=== PATIENT | female | born 2000 | race Caucasian/White ===

== ENCOUNTER 2023-10-25 14:04 | Emergency (ER) | payer MEDICAID, SELFPAY ==
[2023-10-25 14:10] VITALS: BP 144/91; PULSE 85; RESP 20; TEMP 37.2; O2SAT 97; BMI 23.0
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
[2023-10-25] MEDS: Baclofen 20 MG TABLET PO (14:29)
[2023-10-25] MEDS: Gabapentin 600 MG TABLET PO (14:29)
[2023-10-25 16:28] VITALS: BP 113/55; PULSE 70; RESP 16; TEMP 36.5; O2SAT 95
--- NOTE | 2023-10-25 17:15 | PHA.MEDREC ---
Pharmacy Consult ? Medication Reconciliation Pharmacy has reviewed the medication reconciliation completed by Bri. Padmini Tiwari, LucianoD
--- NOTE | 2023-10-25 17:25 | PC.NURSE ---
pt refusing to answer SI question in triage. pt placed with 1:1 sitter for past SI attempt. pt with visual, auditory, and tactile hallucinations. claims the user acceptance tester is her ex-girlfriend. pt is wheelchair bound. t/w had plans to straight cath pt for utox for care team. care team met with pt before utox obtained and stated pt doesn't need one. pt mom called to check in on pt. left nuber and would like to be updated. Emilie: [phone]
--- NOTE | 2023-10-25 20:41 | MHC.CARE ---
Care team evaluation complete. Pt will be discharged home and her mother will pick her up. pt will continue with [facility] in the morning. Safety plan created and discussed with Pt; Pt verbalized understanding. Pt's mother made aware of safety plan as well. RN, ED provider and Pt are aware of disposition.
== END 2023-10-25 19:21 | disposition home or self-care (01) ==
PROVIDERS: Emergency Provider Emergency Medicine; PCP Internal Medicine
DX: F31.60 Bipolar disorder, current episode mixed, unspecified (principal); F29 Unspecified psychosis not due to a substance or known physiological condition; G82.20 Paraplegia, unspecified; Z87.820 Personal history of traumatic brain injury; Z99.3 Dependence on wheelchair
CPT/HCPCS: 99284; 99285; S9485

== ENCOUNTER 2023-10-27 10:45 | Outpatient (RCR) | payer MEDICAID, OTHER, SELFPAY ==
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
[2023-10-23 12:14] VITALS: BMI 25.4
[2023-10-23 12:48] VITALS: BP 123/88; PULSE 81; TEMP 37.2
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
--- NOTE | 2023-10-25 14:47 | HO.PHP ---
PHP staff member received a tiger text from November stating that Mary is in group room A dysregulated and screaming. PHP staff member met with Mary, had tangential speech, presented with delusional thoughts, distraught, tearful, dysregulated and appeared easily agitated. Mary was expressing feeling as though she did not fit in, was talking about being transgender and not being able to talk about it. [facility] staff asked Mary if we could go back to my office so we aren't disrupting the group. Mary was receptive. PHP staff member, Maria Luisa, in which we assessed what triggered this situation. Mary was distraught stating she doesn't fit in anywhere and no one likes her. Mary shared how she went to [facility] and when she came back no one cares about her. [facility] staff Cee, expressed that it appears her mother is supportive. Mary said no it is here, she doesn't connect with the peers. Mary was difficult to follow in which she had delusions around going to [facility], [employer], some woman (didn't disclose who the woman was), voicing that she knows what she has to do, etc. Mary was growing increasing agitated and headed to the door. [facility] staff explored with Mary any safety concerns. Mary disclosed, I can't do anything, I'm in a wheelchair. Mary then exited the room. PHP staff member contacted the mother to inform her that Mary is having a challenging day. PHP staff encouraged the mother to further provide support around safety. Mary's mother was receptive and shared how Mary has been enjoying the program. PHP staff member suggested if the mother needs anything to let us know. Mary's mother was in agreement. PHP staff member Cee and Yennifer, met with Mary before she went home, when we went to get her from the group, she was dysregulated, crying, and screaming. PHP staff members pulled Mary to the side. Mary was making comments around knowing she will hurt her family when she gets home. PHP staff member suggested that we go to the ER to get evaluated. Mary was receptive. PHP staff member Cee, informed Elif, while PHP staff member, Yennifer, brought Mary down to the ER. PHP staff member went to the CARE team to update them when Mary was being seen in triage. PHP staff member spoke to Rena, through the CARE team and provided her with an update around behaviors observed later today in groups. Rena assessed if she presented in this manner when she started two days ago. PHP staff member voiced that she did not but it appeared the provider had noted some information on her presentation with her yesterday. PHP staff expressed that Mary had two TBI's and struggles cognitively. Rena was receptive and reviewed the integrated and Doctor note. [facility] staff member informed Mary's mother that Mary is being evaluated in the ER due to concerns around her presentation. Mary's mother shared that she is familiar with her psychosis and noted that it was worse when her med provider abruptly discontinued medication. Mary's mother talked about her dislike with the hospital setting and stated that in the past she has had to go to the hospital because they did not have anyone who could meet Mary's needs. [facility] staff disclosed that she is uncertain to the procedures within the ER and noted if they have additional questions they will reach out to her. Mary's mtoher was receptive.
--- NOTE | 2023-10-25 14:50 | PC.NURSE ---
[facility] staff escorted Mary down to the [facility] for a crisis evaluation. Per [facility] staff patient reportedly expressing SI and HI in group and presented as delusional. She reported to staff that she was experiencing suicidal thoughts, sobbing, distraught making statements of hurting a women, hurting family, and herself. Delusional statements about hell and her purpose. Staff reports she smelled of Marijuana. Patient has a history of 2 TBI's. In addition, Dr Shankar decreased patient's Celexa from 60 mg to 40 mg daily. Nurse to Nurse done including the aforementioned information.
--- NOTE | 2023-10-26 18:20 | HO.PHP ---
Client's case has been opened and reviewed in treatment team.
--- NOTE | 2023-10-26 22:14 | P.PNPSP_ITS ---
Subjective Subjective Date of Service: 10/26/23 Reason For Visit: JEFF,MDD,bipolar Interim History: Sent patient home early from program today. Having diffciulty with tolerating groups, has been disruptive responding to AH (believes mom is talking to her while in group). SHe tells me she sees her mother and sister and exGF in group. She is getting upset because she believes she is mindreading what the other patient in the groups are thinking and shares what she has been hearing. She is angry that they are thwarting her attempts at getting a girlfriend and says that this was her purpose for coming to the program. She is also frustrated that they act like they cant hear my thoughts back at them and remains hyperfixated on one of the other patients. She says she is Silvano and that she has been given the power to cure with Love and that the devil is men and in the room . She also talks about coming from the devil and continues to insist she needs to be here to process her and what I was shown when I was hooked up to the [employer] [facility] [employer] and believes she needs to be allowed to share this with people in the program because that is the purpose of being here. She agrees to having her mother join us and was agreeable to starting on medication because she hasn't been sleeping, and agrees to medication to help her brain which is constantly running at full capacity and admits it can be too much information to deal with. 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 Medication Compliance: Yes Side effects from medications: No Attending Groups: Yes Review of Systems Acute medical concerns: No Mental Status Exam Mental Status Exam Narrative: Alert, oriented, in no acute distress. In wheelchair Patient Behavior: Talkative, Restless and Impulsive Mood Description: Euphoric and Angry Affect Description: Labile and Expansive Patient Cognition Impaired: Yes Ability to Follow Directions: Good Speech Pattern: Spontaneous Speech, Rambling and Rapid Memory Description: Normal for Patient Hallucinations: Auditory and Visual Delusions: Grandiose, Thought Insert/Delete, Ideas of Reference and Bizarre Perceptual Disturbances: Hallucinations Thought Process: Incoherent and Illogical Thought Content: positive for Obsessional Thoughts, positive for Loose Associations and positive for Disorganized Judgement: Fair Diagnostics Vital Signs (24Hr): BMI result Body Mass Index 25.4 Assessment & Plan Assessment & Plan (1) Bipolar affective disorder, mixed, severe, with psychotic behavior: Status: Acute Code(s): F31.64 - Bipolar disorder, current episode mixed, severe, with psychotic features (2) Unspecified mental disorder due to known physiological condition: Status: Acute Code(s): F09 - Unspecified mental disorder due to known physiological condition (3) Cannabis use with cannabis-induced disorder: Status: Acute Code(s): F12.99 - Cannabis use, unspecified with unspecified cannabis-induced disorder Plan Patient is agreeable to leaving program early today and starting straight away on risperidone 0.5 mg BID start Depakote 250 mg ER qhs tonight Will call tonight to check and may repeat another 0.5 mg later (patient may be vulnerable to side effects due to TBI) taper off citalopram patient agrees to avoid any further cannabis use for time being. Denies any alcohol or other substance use mom refusing to bring pt for labs, she is still angry about ED visit yesterday Patient educated on: diagnosis, medication risk/benefits and substance abuse Reason for contiued partial hosp. stay Substantial Risk for: harm to self, inability to function, rapid decompensation and med/psych decompensation Certification I certify that partial hospital treatment is medically necessary due to the symptoms and problems resulting from the patient's mental illness and the carina lure to treat the patient at the partial hospital level of care would likely result in the patient requiring inpatient psychiatric care which could not be prevented at a less intensive level of care. Total time managing care of this patient today __30__ minutes. Discharge Plan Discharge Attending provider: Snehal Shankar Medications: New risperidone 0.5 mg tablet 0.5 mg PO BID Qty: 30 0RF gabapentin 800 mg tablet 800 mg PO TID Qty: 30 0RF divalproex [Depakote ER] 250 mg tablet extended release 24 hr 250 - 500 mg PO .QHS Qty: 20 0RF Rx Instructions: start one tablet po daily at bedtime for 4 nights, then increase to 2 tablets po daily at bedtime Continued sennosides [senna] 8.6 mg Tablet 8.6 - 17.2 mg PO BEDTIME Rx Instructions: Take 1-2 tabs at Bedtime. gabapentin 600 mg Tablet 600 mg PO TID tizanidine 4 mg tablet 4 mg PO TID PRN (Reason: muscle spasm) baclofen 20 mg tablet 20 mg PO TID Discontinued citalopram 40 mg Tablet 40 mg PO DAILY quetiapine 100 mg tablet 150 mg PO QPM
--- NOTE | 2023-10-27 11:29 | PC.NURSE ---
Patient having a difficult time in the first group of the day. She met with Dr Shankar. She is on a section 12 A as per the section patient presents as delusional, agitated, believes she is Silvano and that she and came back, hearing voices. Screaming suicidal statements of not wanting to be alive, concerned another patient whom she believes is destined to be part of her life. Security was called for more support. Patient agreed to go to the ER and wheeled herself into the ER without incident. Nurse to Nurse done with Vicky charge nurse in the behavioral health pod. Care steam finisher Kristina notified. A female patient in the group came to staff visibly shaken stating that Mary cornered her in the room talking about the devil and that she is like her ex and they need to be together.
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
== END 2023-10-27 23:59 | disposition home or self-care (01) ==
LOC: HO.PHPA 10:45
PROVIDERS: Visit Provider Psychiatry & Neurology Psychiatry
DX: F31.64 Bipolar disorder, current episode mixed, severe, with psychotic features (principal); F09 Unspecified mental disorder due to known physiological condition; F12.99 Cannabis use, unspecified with unspecified cannabis-induced disorder; Z79.899 Other long term (current) drug therapy
CPT/HCPCS: 90791; 90853

== ENCOUNTER → 2023-10-27 10:45 | Outpatient (BNV) | payer OTHER, SELFPAY | PROVIDERS: Visit Provider Psychiatry & Neurology Psychiatry | DX: F31.60 Bipolar disorder, current episode mixed, unspecified (principal); F09 Unspecified mental disorder due to known physiological condition; F12.99 Cannabis use, unspecified with unspecified cannabis-induced disorder | CPT/HCPCS: 90837; 99213 ==

== ENCOUNTER 2023-10-27 11:07 | Emergency (ER) | payer MEDICAID, SELFPAY ==
[2023-10-27 11:35] VITALS: BP 135/79; PULSE 86; RESP 16; TEMP 36.7; O2SAT 97; BMI 25.4
--- NOTE | 2023-10-27 11:44 | PC.NURSE ---
pt brought over by [facility] staff on a section 12 for delusional thinking, believing that she is Silvano, that she had and come back to life. pt hallucinating according to [facility] staff. staff informed t/w that pt has delusional thoughts that she is in an intimate relationship with another patient in the program, pt has volatile outbursts claiming that she will kill herself and other people. pt has a hx of 2 TBI in the past one which left her wheelchair bound. pt requires straight catheterization 4x daily. when speaking with the patient she reports that she is here because they dont like me over there
--- NOTE | 2023-10-27 11:51 | ED.PSYCH ---
HPI - Psych General Chief Complaint: Psychiatric Symptoms Stated Complaint: Section 12 Time Seen by Provider: 10/27/23 11:25 Source: patient and family Mode of arrival: ambulatory Limitations: other (stefani ) History of Present Illness HPI Narrative: 23 year old female hx of TBI, parapalegic, bipolar do, mood disorder, cognitive d/o presents w/ acute stefani form partial program with acute stefani and suicidal thoughts. She has been started on risperidone and depakote recently without improvment only on it for two days. Hallucinating and thinking she is god. Denies drug use. Lives with mother. Has had previous hospitalizations. Denies medical complaints. Related Data Home Medications Medication Instructions Recorded Confirmed baclofen 20 mg tablet 20 mg PO TID 10/23/23 10/27/23 gabapentin 600 mg tablet 600 mg PO TID 10/23/23 10/27/23 sennosides 8.6 mg tablet (senna) 8.6 - 17.2 mg PO BEDTIME 10/23/23 10/27/23 tizanidine 4 mg tablet 4 mg PO TID PRN muscle spasm 10/23/23 10/27/23 Previous Rx's Medication Instructions Recorded divalproex 250 mg tablet,extended 250 - 500 mg (1 - 2 x 250 mg) PO 10/26/23 release 24 hr (Depakote ER) .QHS #20 tabs risperidone 0.5 mg tablet 0.5 mg PO BID as directed #30 tabs 10/26/23 Allergies Allergy/AdvReac Type Severity Reaction Status Date / Time codeine Allergy Anaphylaxis Verified 10/25/23 14:22 Review of Systems Review of Systems: Yes all other systems are reviewed and are negative PMFSH Past Medical History Attestation statement: The following information was validated with the patient. Source: old records reviewed and nursing notes reviewed Medical History Neuropathy involving both lower extremities Paralysis TBI (traumatic brain injury) Social History Social History Household Members: Family Patient Tobacco Use Status: Current everyday Tobacco user Tobacco use type: Cigarette Smoked in Last 30 Days: Yes Use of substances other than those prescribed or required for medical reasons: Yes Substance Use Type: Marijuana Advance Directives: No Advance Directives Information Provided: No Patient : No Physical Exam Vital Signs: Vital Signs: Last Vital Signs Temp 98.1 F 10/27/23 11:35 Pulse 86 10/27/23 11:35 Resp 16 10/27/23 11:35 BP 135/79 10/27/23 11:35 Pulse Ox 97 10/27/23 11:35 O2 Del Method Room Air 10/27/23 11:35 BMI result Body Mass Index 25.4 vss Appearance: Alert.? Oriented X3.? No acute distress.? Head: Normocephalic, atraumatic, no step-offs or deformities Eyes: Pupils equal, round and reactive to light.? CVS: Normal heart rate and rhythm.? Pulses normal.? Respiratory: No respiratory distress.? Breath sounds normal.? Abdomen: Soft and nontender.? Skin: Skin warm and dry.? Normal skin color.? Normal skin turgor.? Extremities: No lower extremity edema.? No calf ttp. 5/5 strength to bilateral upper and lower extremities Neuro: Oriented X 3.? No motor deficit.? No sensory deficit. CN 2-12 intact Course Reevaluation(s) Reevaluation #1: CBC with slight leukocytosis. No left shift. Chemistry no acute findings. UA + for infection --> cefin ordered. COVID negative. Time: 15:43 Reevaluation #2: At this time patient to be placed into observation to allow more time to be evaluated by behavioral health team. Patient on a section 12. At the time observation was started patient common cooperative no acute distress will continue to monitor Reevaluation #3: End physician observation Patient was seen by care team and I got the following information. The patient was sent in by [facility] for behavioral issues. Patient had a psychiatric consult and was felt that the patient did not meet section 12 criteria and the patient can be treated as an outpatient. Care team did give the patient and the patient's mother information on follow-up as well as information on the [facility] program for head injury. Patient states that she has no sensation of her bladder and has to straight cath herself. The patient denied fever, chills, fatigue or weakness. I did review her urinalysis/microscopic : Urinalysis positive for nitrates, microscopic revealed 0-2 WBCs, 0- 2 RBC, 0-2 squamous cells, 4+ bacteria. The patient did receive cefuroxime 1 dose here in the emergency department. At this time I do not think that she has urinary tract infection I did discuss this with the patient and the patient's mother. Given her asymptomatic presentation I do not think that she needs to be on antibiotic at this time and the patient agrees with this plan. 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 Patient will be discharged home. Time: 16:38 Medications Administered Discontinued Medications Generic Name Dose Route Start Last Admin Trade Name Freq PRN Reason Stop Dose Admin Cefuroxime Axetil 250 mg 10/27/23 12:49 10/27/23 13:37 Cefuroxime Axetil 250 Mg Tablet PO 10/27/23 12:50 250 mg ONCE ONE Administration Lorazepam 2 mg 10/27/23 12:48 10/27/23 13:36 Lorazepam 1 Mg Tablet PO 10/27/23 12:49 2 mg ONCE ONE Administration Nicotine 14 mg 10/27/23 12:48 10/27/23 13:37 Nicotine 14 Mg Patch.Td24 TRANSDERMA 10/27/23 12:49 Not Given ONCE ONE Medical Decision Making Medical Decision Making [facility] Narrative: 1152 23 year old female presents on section 12 coming from partial program . PE acute stefani Hx and pe consitent w/ bipolar w/ acute stefani. Suicidal ideation present no homicidal ideation. Unlikely metabolic derangements Plan- medical clearance. Differential Diagnosis Differential Diagnoses: The differential diagnosis associated with the presentation includes Hx and pe consitent w/ bipolar w/ acute stefani. Suicidal ideation present no homicidal ideation. Unlikely metabolic derangements Admission/Observation Consideration of admission/observation: Escalation of care including admission/observation considered Consult Healthcare Provider Management of the patient was discussed with: Ribbing Machine Operator (Dr. Shankar ) Lab Data [facility] Lab Attestation statement: I reviewed the patient's lab results. 10/27/23 14:12 10/27/23 14:12 Labs: Lab Results 10/27/23 10/27/23 10/27/23 Range/Units 12:23 12:24 14:10 WBC (4.8-10.8) X10*3/uL RBC (4.20-5.50) X10*6/uL Hgb (12.0-16.0) g/dl Hct (37.0-47.0) % MCV (80.0-98.0) fL MCH (27.0-33.0) pg MCHC (31.0-35.0) g/dl RDW (11.0-16.0) % Plt Count (160-400) X10*3/uL MPV (9.4-12.3) fL Immature Gran % (Auto) (0.0-0.4) % Neut % (Auto) (45-73) % Lymph % (Auto) (20-40) % [place] % (Auto) (2-11) % Eos % (Auto) (0-4) % Baso % (Auto) (0-2) % Lymph # (Auto) (1.2-4.9) X10*3/uL [place] # (Auto) (0.1-1.2) X10*3/uL Eos # (Auto) (0.0-0.4) X10*3/uL Baso # (Auto) (0.0-0.2) X10*3/uL Abs Immat Gran (auto) (0.00-0.03) X10*3/uL Absolute Neuts (auto) (2.0-8.3) x10*3/uL Absolute Nucleated RBC (0.0-0.012) X10*3/uL Nucleated RBC % (auto) (0.0-0.2) /100WBC Sodium (135-145) mmol/L Potassium (3.3-5.1) mmol/L Chloride (96-108) mmol/L Carbon Dioxide (22-29) mmol/L Anion Gap (12-20) BUN (9-16) mg/dL Creatinine (0.5-1.4) mg/dL Estim Creat Clear Calc Estimated GFR Random Glucose (60-115) mg/dL Calcium (8.4-10.2) mg/dL Magnesium (1.6-2.6) mg/dL Total Bilirubin (0.0-1.0) mg/dL AST (5-31) U/L ALT (0-31) U/L Alkaline Phosphatase (39-117) U/L Total Protein (6.5-8.0) g/dL Albumin (3.5-5.0) g/dL Urine Color Yellow Urine Appearance Clear Urine pH 6.5 (5.0-9.0) Ur Specific [place] 1.015 (1.005-1.025) Urine Protein Negative (Neg-Trace) mg/dL Urine Glucose (UA) Negative (Negative) mg/dL Urine Ketones Negative (Negative) mg/dL Urine Blood Negative (Negative) Urine Nitrite Positive H (Negative) Ur Leukocyte Esterase Negative (Negative) Urine RBC 0-2 (0-2) /HPF Urine WBC 0-5 (0-5) /HPF Ur Squamous Epith Cells 0-2 (0-2) /HPF Urine Bacteria 4+ (None Seen) Hyaline Casts 0-2 (0-2) /LPF Urine Opiates Screen Not Detected (Not Detect) Urine Fentanyl Screen Not Detected (Not Detect) Ur Barbiturates Screen Not Detected (Not Detect) Ur Phencyclidine Scrn Not Detected (Not Detect) Ur Amphetamines Screen Not Detected (Not Detect) U Benzodiazepines Scrn Not Detected (Not Detect) Urine Cocaine Screen Not Detected (Not Detect) U Marijuana (THC) Screen POSITIVE H (Not Detect) Ethyl Alcohol mg/dL COVID-19 (LEYDI) Negative (Negative) COVID-19 Clin Com See Note 10/27/23 Range/Units 14:12 WBC 11.1 H (4.8-10.8) X10*3/uL RBC 5.16 (4.20-5.50) X10*6/uL Hgb 12.4 (12.0-16.0) g/dl Hct 40.6 (37.0-47.0) % MCV 78.7 L (80.0-98.0) fL MCH 24.0 L (27.0-33.0) pg MCHC 30.5 L (31.0-35.0) g/dl RDW 17.2 H (11.0-16.0) % Plt Count 278 (160-400) X10*3/uL MPV 10.8 (9.4-12.3) fL Immature Gran % (Auto) 0.9 H (0.0-0.4) % Neut % (Auto) 70.0 (45-73) % Lymph % (Auto) 19.2 L (20-40) % [place] % (Auto) 8.6 (2-11) % Eos % (Auto) 1.1 (0-4) % Baso % (Auto) 0.2 (0-2) % Lymph # (Auto) 2.1 (1.2-4.9) X10*3/uL [place] # (Auto) 1.0 (0.1-1.2) X10*3/uL Eos # (Auto) 0.1 (0.0-0.4) X10*3/uL Baso # (Auto) 0.0 (0.0-0.2) X10*3/uL Abs Immat Gran (auto) 0.10 H (0.00-0.03) X10*3/uL Absolute Neuts (auto) 7.8 (2.0-8.3) x10*3/uL Absolute Nucleated RBC 0.000 (0.0-0.012) X10*3/uL Nucleated RBC % (auto) 0.0 (0.0-0.2) /100WBC Sodium 140 (135-145) mmol/L Potassium 4.3 (3.3-5.1) mmol/L Chloride 107 (96-108) mmol/L Carbon Dioxide 27 (22-29) mmol/L Anion Gap 10 L (12-20) BUN 11 (9-16) mg/dL Creatinine 0.73 (0.5-1.4) mg/dL Estim Creat Clear Calc 95.5 Estimated GFR > 60 Random Glucose 87 (60-115) mg/dL Calcium 9.3 (8.4-10.2) mg/dL Magnesium 2.0 (1.6-2.6) mg/dL Total Bilirubin 0.2 (0.0-1.0) mg/dL AST 14 (5-31) U/L ALT 12 (0-31) U/L Alkaline Phosphatase 112 (39-117) U/L Total Protein 7.2 (6.5-8.0) g/dL Albumin 3.6 (3.5-5.0) g/dL Urine Color Urine Appearance Urine pH (5.0-9.0) Ur Specific [place] (1.005-1.025) Urine Protein (Neg-Trace) mg/dL Urine Glucose (UA) (Negative) mg/dL Urine Ketones (Negative) mg/dL Urine Blood (Negative) Urine Nitrite (Negative) Ur Leukocyte Esterase (Negative) Urine RBC (0-2) /HPF Urine WBC (0-5) /HPF Ur Squamous Epith Cells (0-2) /HPF Urine Bacteria (None Seen) Hyaline Casts (0-2) /LPF Urine Opiates Screen (Not Detect) Urine Fentanyl Screen (Not Detect) Ur Barbiturates Screen (Not Detect) Ur Phencyclidine Scrn (Not Detect) Ur Amphetamines Screen (Not Detect) U Benzodiazepines Scrn (Not Detect) Urine Cocaine Screen (Not Detect) U Marijuana (THC) Screen (Not Detect) Ethyl Alcohol < 10 mg/dL COVID-19 (LEYDI) (Negative) COVID-19 Clin Com External Record Review External record reviewed: Inpatient record, Office record, Outpatient record, Prior outpatient labs, Prior outpatient radiology, Primary care record and Outside ED record Social Determinants Patient?s care significantly limited by Social Determinants of Health including: Other Social Determinant of Health Critical Care Time Critical Care Time Critical Care Time: Yes Total Critical Care Time: 35 Attestation: I attest to this time spent taking care of the patient, obtaining history, physical, reviewing labs, imaging, speaking to specialist ( psychiatry), chart review. Discharge Plan Discharge Clinical Impression: Bipolar affective disorder, mixed, severe, with psychotic behavior Patient Disposition: Home, Self-Care Additional Instructions: You were seen by our psychiatric provider and the care team. Please follow their instructions regarding getting help as an outpatient. At this time, I do not think that you have a urinary tract infection. Based on the urinalysis and microscopic evaluation, the microbiology lab will try to grow bacteria out of your urine. My impression is that you should only be treated with antibiotics if you have symptoms such as fever, chills, increased fatigue and your culture grows a significant bacteria. The emergency department should contact to if the cultures positive otherwise you should follow-up with your primary care provider for further evaluation. Please return to the emergency department if your symptoms get worse or if you develop any symptoms that are concerning to you. Prescriptions: No Action sennosides [senna] 8.6 mg Tablet 8.6 - 17.2 mg PO BEDTIME Rx Instructions: Take 1-2 tabs at Bedtime. gabapentin 600 mg Tablet 600 mg PO TID tizanidine 4 mg tablet 4 mg PO TID PRN (Reason: muscle spasm) baclofen 20 mg tablet 20 mg PO TID risperidone 0.5 mg tablet 0.5 mg PO BID Qty: 30 0RF divalproex [Depakote ER] 250 mg tablet extended release 24 hr 250 - 500 mg PO .QHS Qty: 20 0RF Rx Instructions: start one tablet po daily at bedtime for 7 nights, then increase to 2 tablets po daily at bedtime Interventions: [place]-Suicide Risk Severity Scale Last Done: 10/27/23 11:38
[2023-10-27 12:47] LABS: Appearance Urine Clear; Color Urine Yellow; Glucose Urine UA Negative (Negative); Leukocyte Esterase Urine Negative (Negative); Nitrite Urine Positive (Negative); PH 6.5 (5.0-9.0); Specific Gravity - Urine 1.015 (1.005-1.025); UMIC TRIGGER UACC YES; Urine Blood Negative (Negative); Urine Ketones Negative (Negative); Urine Protein Negative (Neg-Trace)
[2023-10-27 12:49] LABS: Bacteria Urine 4+ (None Seen); Hyaline Casts Urine 0-2 /LPF (0-2); RBC Urine 0-2 /HPF (0-2); Squamous Epithelial Cell Urine 0-2 /HPF (0-2); UACC Culture Trigger YES; WBC Urine 0-5 /HPF (0-5)
[2023-10-27 12:54] LABS: Amphetamine Screen Urine Not Detected (Not Detect); Barbiturates, Urine Not Detected (Not Detect); Benzodiazepines Screen Urine Not Detected (Not Detect); Cannabinoid Screen Urine POSITIVE (Not Detect); Cocaine Screen Urine Not Detected (Not Detect); Fentanyl, urine Not Detected (Not Detect); Opiate Screen Urine Not Detected (Not Detect); Phencyclidine Screen Urine Not Detected (Not Detect)
[2023-10-27] MEDS: LORazepam 1 MG TABLET 2 MG PO (13:36)
[2023-10-27] MEDS: cefuroxime axetiL 250 MG TABLET PO (13:37)
--- NOTE | 2023-10-27 13:38 | PC.NURSE ---
medication administered per provider order. pt refused nicotine patch. mother bedside for support at this time.
[2023-10-27 14:17] LABS: MANUAL DIFF FLAG NO
[2023-10-27 14:18] LABS: Basophils Percent Auto 0.2 % (0-2); Eosinophils Absolute Auto 0.1 X10*3/uL (0.0-0.4); Eosinophils Percent Auto 1.1 % (0-4); Hematocrit 40.6 % (37.0-47.0); Hemoglobin 12.4 g/dl (12.0-16.0); Imm Gran Pct Auto 0.9 % (0.0-0.4); Lymphocytes Absolute Auto 2.1 X10*3/uL (1.2-4.9); Lymphocytes Percent Auto 19.2 % (20-40); Mean Corpuscular HGB Conc 30.5 g/dl (31.0-35.0); Mean Corpuscular Volume 78.7 fL (80.0-98.0); Mean Platelet Volume 10.8 fL (9.4-12.3); Monocytes Percent Auto 8.6 % (2-11); Neutrophils Absolute Auto 7.8 x10*3/uL (2.0-8.3); Platelet Count 278 X10*3/uL (160-400); Red Blood Count 5.16 X10*6/uL (4.20-5.50); Red Cell Distribution Width 17.2 % (11.0-16.0); White Blood Count 11.1 X10*3/uL (4.8-10.8)
[2023-10-27 14:36] LABS: Alanine Aminotransferase 12 U/L (0-31); Albumin Level 3.6 g/dL (3.5-5.0); Alkaline Phosphatase 112 U/L (39-117); Anion Gap 10 (12-20); Aspartate Amino Transferase 14 U/L (5-31); Bilirubin Total 0.2 mg/dL (0.0-1.0); Blood Urea Nitrogen 11 mg/dL (9-16); Calcium 9.3 mg/dL (8.4-10.2); Carbon Dioxide 27 mmol/L (22-29); Chloride 107 mmol/L (96-108); Creatinine Clr Calc Pharmacy 95.5; Estimated Glomerular Filt Rate > 60; Ethanol < 10 mg/dL; Glucose Random 87 mg/dL (60-115); Potassium 4.3 mmol/L (3.3-5.1); Sodium 140 mmol/L (135-145); Total Protein 7.2 g/dL (6.5-8.0)
[2023-10-27 14:37] LABS: COVID-19 Test Negative (Negative); IDNOW Serial# 55D5AD1C
--- NOTE | 2023-10-27 15:43 | PHA.MEDREC ---
Pharmacy Consult ? Medication Reconciliation Pharmacy has reviewed the medication reconciliation copleted by Delicia. Patient reports only 1 dose of divaloproex 250 mg and is suppose to increase to 2 tablets in 7 days. Patient report scheduled tizanidine however patient has schedule baclofen therefore will leave tizandine prn. Padmini Tiwari, LucianoD
--- NOTE | 2023-10-27 16:42 | P.CNPS_ITS ---
History of Present Illness Date of Service: 10/27/23 Chief Complaint: Section 12 Reason for Consult: Disposition per care team. Sources of Information: patient interviewed and chart reviewed HPI Narrative: Per ER documents; Patient is a 23 year old female hx of TBI, parapalegic, bipolar d/o, cannabis abuse d/o, who was brought from [facility] with delusions and suicidal thoughts. She has been started on risperidone and depakote recently. Consult placed to determine disposition per care team. During assessment, mother was present; pt lying in bed. Pt presents calm, cooperative and friendly; alert and oriented. Pt reports feeling good today; pt stated, [facility]. I wasn't saying anything other than what happened to me in my life. I had talked about a past suicide attempt. I didn't say anything about hurting myself or anyone else . Pt reports she feels PHP has been helpful to her; pt stated, I haven't felt suicidal in a long time. [facility] better understanding on how to communicate; I felt like it was helping me; my therapist had suggested it . Pt reports she see's her outpatient therapist once a week and her outpatient psychiatrist once every three weeks. pt denies SI/HI/VH/AH. Patient's mother reports she takes care of patient time recorder. Mother stated, Mary doesn't have access to her medications and we don't have any weapons in the house. She's fine. She shouldn't be in the ER. I give her her medications everyday. I'm going to find a different program for her . Past Psychiatric History: Therapist: Anitha Means Psychiatrist: Kelly Bashir hx of one prior inpatient hospitalization in 2021 for suicidal ideation. Medical Evaluation Reviewed: Yes Review of Systems Constitutional: Reports as per HPI Eyes: Reports as per HPI Reports as per HPI Cardiovascular: Reports as per HPI Respiratory: Reports as per HPI Gastrointestinal: Reports as per HPI Genitourinary: Reports as per HPI Musculoskeletal: Reports as per HPI Skin/Breast: Reports as per HPI Reports as per HPI Psychiatric: Reports as per HPI Endocrine: Reports as per HPI Hematologic/Lymphatic: Reports as per HPI Allergic/Immunologic: Reports as per HPI [facility] Medical History (Updated 10/27/23 @ 17:01 by Marilin Chowdhury NP) Neuropathy involving both lower extremities Paralysis TBI (traumatic brain injury) Family History: sister: bipolar d/o sister: depression Social History: lives at home with mom. Substance History: Pt reports smoking 1/8th of marijuana daily and sometimes taking edibles . Diagnostics Vital Signs (24Hr): Vital Signs - 24 hr 10/27/23 11:35 Temperature 98.1 F Pulse Rate 86 Respiratory Rate 16 Blood Pressure 135/79 Pulse Oximetry 97 Oxygen Delivery Method Room Air BMI result Body Mass Index 25.4 Labs 10/27/23 14:12 10/27/23 14:12 Labs: Laboratory Results - last 48 hr 10/27/23 10/27/23 10/27/23 12:23 12:24 14:10 WBC RBC Hgb Hct MCV MCH MCHC RDW Plt Count MPV Immature Gran % (Auto) Neut % (Auto) Lymph % (Auto) [place] % (Auto) Eos % (Auto) Baso % (Auto) Lymph # (Auto) [place] # (Auto) Eos # (Auto) Baso # (Auto) Abs Immat Gran (auto) Absolute Neuts (auto) Absolute Nucleated RBC Nucleated RBC % (auto) Sodium Potassium Chloride Carbon Dioxide Anion Gap BUN Creatinine Estim Creat Clear Calc Estimated GFR Random Glucose Calcium Magnesium Total Bilirubin AST ALT Alkaline Phosphatase Total Protein Albumin Urine Color Yellow Urine Appearance Clear Urine pH 6.5 Ur Specific [place] 1.015 Urine Protein Negative Urine Glucose (UA) Negative Urine Ketones Negative Urine Blood Negative Urine Nitrite Positive H Ur Leukocyte Esterase Negative Urine RBC 0-2 Urine WBC 0-5 Ur Squamous Epith Cells 0-2 Urine Bacteria 4+ Hyaline Casts 0-2 Urine Opiates Screen Not Detected Urine Fentanyl Screen Not Detected Ur Barbiturates Screen Not Detected Ur Phencyclidine Scrn Not Detected Ur Amphetamines Screen Not Detected U Benzodiazepines Scrn Not Detected Urine Cocaine Screen Not Detected U Marijuana (THC) Screen POSITIVE H Ethyl Alcohol COVID-19 ([facility]DI) Negative COVID-19 Clin Com See Note 10/27/23 14:12 WBC 11.1 H RBC 5.16 Hgb 12.4 Hct 40.6 MCV 78.7 L MCH 24.0 L MCHC 30.5 L RDW 17.2 H Plt Count 278 MPV 10.8 Immature Gran % (Auto) 0.9 H Neut % (Auto) 70.0 Lymph % (Auto) 19.2 L [place] % (Auto) 8.6 Eos % (Auto) 1.1 Baso % (Auto) 0.2 Lymph # (Auto) 2.1 [place] # (Auto) 1.0 Eos # (Auto) 0.1 Baso # (Auto) 0.0 Abs Immat Gran (auto) 0.10 H Absolute Neuts (auto) 7.8 Absolute Nucleated RBC 0.000 Nucleated RBC % (auto) 0.0 Sodium 140 Potassium 4.3 Chloride 107 Carbon Dioxide 27 Anion Gap 10 L BUN 11 Creatinine 0.73 Estim Creat Clear Calc 95.5 Estimated GFR > 60 Random Glucose 87 Calcium 9.3 Magnesium 2.0 Total Bilirubin 0.2 AST 14 ALT 12 Alkaline Phosphatase 112 Total Protein 7.2 Albumin 3.6 Urine Color Urine Appearance Urine pH Ur Specific [place] Urine Protein Urine Glucose (UA) Urine Ketones Urine Blood Urine Nitrite Ur Leukocyte Esterase Urine RBC Urine WBC Ur Squamous Epith Cells Urine Bacteria Hyaline Casts Urine Opiates Screen Urine Fentanyl Screen Ur Barbiturates Screen Ur Phencyclidine Scrn Ur Amphetamines Screen U Benzodiazepines Scrn Urine Cocaine Screen U Marijuana (THC) Screen Ethyl Alcohol < 10 COVID-19 ([facility]DI) COVID-19 Clin Com Mental Status Exam Mental Status Exam Narrative: Pt is alert and oriented; behavior is cooperative, friendly and calm; dressed in casual attire; mood is described as good ; eye contact appropriate; Speech is normal rate, volume and prosody and not pressured; thought process is organized; Thought content is on tx; otherwise pertinent to relevant topics and without any delusional content, paranoid ideations or grandiosity; denies SI/HI/VH/AH. Medications Medications Current Medications Baclofen (Baclofen 20 Mg Tablet) 20 mg PO TID [facility] Cefuroxime Axetil (Cefuroxime Axetil 250 Mg Tablet) 250 mg PO BID [facility] Divalproex Sodium (Divalproex Sodium Er 250 Mg Tab.Er.24h) 250 mg PO BEDTIME YOBANI Stop: 11/01/23 21:01 Divalproex Sodium (Divalproex Sodium Er 250 Mg Tab.Er.24h) 500 mg PO BEDTIME [facility] Gabapentin (Gabapentin 600 Mg Tablet) 600 mg PO TID [facility] Risperidone (Risperidone 0.5 Mg Tablet) 0.5 mg PO BID [facility] Senna (Sennosides 8.6 Mg Tablet) 8.6 mg PO BEDTIME MRX1 YOBANI Tizanidine HCl (Tizanidine Hcl 4 Mg Tablet) 4 mg PO TID PRN PRN Reason: muscle spasm Allergies Allergies Allergy/AdvReac Type Severity Reaction Status Date / Time codeine Allergy Anaphylaxis Verified 10/25/23 14:22 Assessment & Plan Assessment & Plan (1) Bipolar 1 disorder: Status: Acute Code(s): F31.9 - Bipolar disorder, unspecified (2) TBI (traumatic brain injury): Status: Acute Code(s): S06.9XAA - Unspecified intracranial injury with loss of consciousness status unknown, initial encounter (3) Cannabis abuse: Status: Acute Code(s): F12.10 - Cannabis abuse, uncomplicated Plan Per ER documents; Patient is a 23 year old female hx of TBI, paraplegic, bipolar d/o, cannabis abuse d/o, who was brought from partial program at [facility] with delusions and suicidal thoughts. She has been started on risperidone and depakote recently. Consult placed to determine disposition per care team. Patient does not present manic or delusional during assessment. She is denying suicidal and homicidal ideations. Pt does not currently meet criteria for Section 12 at this time with current presentation. She and her mother are requesting to be discharged home with information regarding other programs. Care team to provide resources. Total time managing care of this patient today _30___ minutes. Patient educated on: diagnosis, substance abuse and therapeutic strategies Guardian/Caregiver educated on: diagnosis, substance abuse and therapeutic strategies Informed Consent: understands
== END 2023-10-27 17:17 | disposition home or self-care (01) ==
PROVIDERS: Physician Assistant; Emergency Provider Emergency Medicine
DX: F31.64 Bipolar disorder, current episode mixed, severe, with psychotic features (principal); G82.20 Paraplegia, unspecified; Z87.820 Personal history of traumatic brain injury; Z79.899 Other long term (current) drug therapy; Z11.52 Encounter for screening for COVID-19
CPT/HCPCS: 80053; 80307; 81001; 83735; 85025; 87086; 87088; 87186; 87635; 99284; S9485

== ENCOUNTER → 2023-10-27 11:43 | Outpatient (BNV) | payer MEDICAID, SELFPAY | PROVIDERS: Emergency Provider Emergency Medicine; Visit Provider Registered Nurse | DX: F31.4 Bipolar disorder, current episode depressed, severe, without psychotic features (principal); S06.9XAD Unspecified intracranial injury with loss of consciousness status unknown, subsequent encounter; F12.10 Cannabis abuse, uncomplicated | CPT/HCPCS: 99283 ==